=== PATIENT | female | born 1990 | race African-American/Black ===

== ENCOUNTER 2020-02-20 12:52 | Observation (INO) | payer MEDICAID ==
[~2020-02-20] VITALS: Ht 162.6 cm; Wt 133.8 kg
== END 2020-02-20 16:30 | disposition home or self-care (01) ==
LOC: L&D 12:52 → OB TRIAGE 13:29
PROVIDERS: ADMIT Obstetrics & Gynecology; ATTEND Obstetrics & Gynecology
DX: O26.893 Other specified pregnancy related conditions, third trimester (principal); R10.9 Unspecified abdominal pain; Z3A.35 35 weeks gestation of pregnancy
CPT/HCPCS: 59025; 76815; 76818; G0378; 99281

== ENCOUNTER 2020-02-22 11:44 | Observation (INO) | payer MEDICAID ==
[~2020-02-22] VITALS: Ht 162.6 cm; Wt 133.8 kg
== END 2020-02-22 15:15 | disposition home or self-care (01) ==
LOC: 8 EST LDRP 11:44
PROVIDERS: ADMIT Obstetrics & Gynecology; ATTEND Obstetrics & Gynecology
DX: O26.893 Other specified pregnancy related conditions, third trimester (principal); R10.9 Unspecified abdominal pain; Z3A.35 35 weeks gestation of pregnancy
CPT/HCPCS: 76815; 76818; G0378; 99281

== ENCOUNTER 2020-03-25 16:45 | Observation (INO) | payer MEDICAID ==
[~2020-03-25] VITALS: Ht 165.1 cm; Wt 134.3 kg
== END 2020-03-25 18:30 | disposition home or self-care (01) ==
LOC: 8 EST LDRP 16:45
PROVIDERS: ADMIT Obstetrics & Gynecology; ATTEND Obstetrics & Gynecology
DX: O26.893 Other specified pregnancy related conditions, third trimester (principal); R10.30 Lower abdominal pain, unspecified; Z3A.37 37 weeks gestation of pregnancy
CPT/HCPCS: 59025; G0378; 99281